=== PATIENT | male | born 1950 | race Caucasian/White ===

== ENCOUNTER → 2022-09-13 | Outpatient (CLI) | payer MEDICARE, BC ==
--- NOTE | 2022-09-16 11:03 | MR ---
EXAMINATION TYPE: MR Prostate wo/w con DATE OF EXAM: 09/13/2022 10:43 AM COMPARISON: None. CLINICAL INDICATION:Male, 71 years old with history of R97.20; PHH, TECHNIQUE: Multi-planar, multi-sequence imaging of the pelvis is performed prior to and following the uncomplicated administration of bolus intravenous gadolinium. CONTRAST: 12 Gadavist Interpretive Criteria: PI-RADS v2.1 SERUM PSA: 5.5 on 08/25/2022. 5.3 on 07/17/2022 SURGICAL PATHOLOGY: No data available. FINDINGS: Prostatic dimensions: 5.3 x 5.0 x 3.4 cm. "Bullet" Volume: 58.97 (PSA density=0.09 ng/mL/mL) CENTRAL GLAND (Central and Transition Zones/CZ+TZ): Low T2 signal involving the central gland involving the apex and mid gland anteriorly measuring 3.4 x 1.8 cm which does cross midline on diffusion weighted imaging and extends along the capsule at least 3.4 cm. No definitive evidence for extension beyond the capsule.(PI-RADS 5) Median lobe hypertrophy with protrusion into the base of the bladder. PERIPHERAL ZONE (PZ): Bilateral linear, indistinct wedgelike areas of low ADC, and low T2 signal, No evidence of masslike a bnormality, or localized perfusional hypervascularity, to further suggest a focus of clinically signi ficant prostate cancer. (PI-RADS 2) SEMINAL VESICLES (SV): Diffusely collapse or atrophic, bilaterally. PERIPROSTATIC TISSUES: Unremarkable. LYMPH NODES: No enlarged pelvic lymph node. REMAINING PELVIS: Bladder wall is within normal limits given distention. No abnormal free or organized intrapelvic fluid collection. No pathologic bowel dilation or mural thickening. Scattered colonic diverticula are present. OSSEOUS STRUCTURES: No suspicious osseous abnormality. IMPRESSION: 1. PI-RADS 5 lesion in the central gland which crosses midline anteriorly. Septa 3.4 cm. 2. No suspicious osseous lesion. No lymphadenopathy. No evidence of prostate adenocarcinoma involving the periprostatic tissues. 3. Moderate BPH, estimated gland volume 58.97 mL. 4. Colonic diverticulosis.
== END | disposition home or self-care (01) ==
LOC: RADMRIMAIN 09:40
PROVIDERS: ATTEND Urology
DX: K57.30 Diverticulosis of large intestine without perforation or abscess without bleeding (principal); N40.0 Benign prostatic hyperplasia without lower urinary tract symptoms; R97.20 Elevated prostate specific antigen [PSA]
CPT/HCPCS: 72197; A9585

== ENCOUNTER → 2022-12-11 | Outpatient (CLI) | payer MEDICARE, BC ==
--- NOTE | 2022-12-12 08:55 | PE ---
EXAMINATION TYPE: PET CT fusion skull to thigh DATE OF EXAM: 12/11/2022 CLINICAL INDICATION:Male, 72 years old with history of C61 PROSTATE CANCER; TECHNIQUE: Following the intravenous administration of 6.17 mCi of Ga-68 Illuccix (PSMA), whole bod y images are performed from the skull base to the midthigh. Images are reviewed on the computer in t he coronal, axial, and sagittal planes. Reconstructed rotating images are created on independent wor kstation and reviewed on the computer. A non-contrast CT is performed in conjunction with the PET s can. Glucose level 100 mg/dL CT DLP: 993 mGycm, Automated exposure control for dose reduction was used. COMPARISON: CT None, PET/CT None, MRI prostate 09/13/2022. FINDINGS: Mediastinal SUV mean is 1.8. Hepatic parenchyma SUV mean is 6.6. SKULL BASE AND NECK: No suspicious radiotracer activity. CHEST, MEDIASTINUM, AND HILAR REGION: No suspicious radiotracer activity. ABDOMEN AND PELVIS: * Dominant right prostate mid gland lesion max SUV 15.0 corresponding with MRI. * A small focus in the left mid gland max SUV 7.0 and 2 paramedian lesions more inferiorly near the apex max SUV 10.7 and 6.1 on the right and left respectively. No MRI correlate for these lesions. The se may be artifact. MUSCULOSKELETAL STRUCTURES: No suspicious radiotracer activity. No abnormal uptake identified. OTHER CT: Atherosclerosis of the arterial vasculature including mild coronary artery atherosclerosis. Scattered colonic diverticula. Fat-containing umbilical hernia. Multilevel degeneration changes thro ughout the spine. IMPRESSION: Findings compatible with primary prostate adenocarcinoma which corresponds with prior MRI. Few additi onal scattered foci in the prostate gland of metabolic uptake with no MRI correlate, unclear whether these are sites of additional malignancy versus artifact. No evidence for metastatic disease at this time.
== END | disposition home or self-care (01) ==
LOC: RADPETMAIN 15:35
PROVIDERS: ATTEND Radiology Radiation Oncology
DX: C61 Malignant neoplasm of prostate (principal)
CPT/HCPCS: 78815; A9596

== ENCOUNTER → 2022-12-24 | Outpatient (CLI) | payer MEDICARE, BC ==
[2022-12-24 16:21] LABS: Basophils # (A) 0.05 X 10*3/uL (0.00-0.10); Basophils % (A) 0.8 %; Eosinophils # (A) 0.13 X 10*3/uL (0.04-0.35); Eosinophils % (A) 2.2 %; HCT 44.3 % (39.6-50.0); HGB 14.9 g/dL (13.0-17.0); Lymphocytes # (A) 1.27 X 10*3/uL (0.90-5.00); MCHC 33.6 g/dL (32.0-37.0); MCV 92.1 FL (80.0-97.0); Mean Platelet Volume 10.7 FL (9.5-12.2); Monocytes # (A) 0.45 X 10*3/uL (0.20-1.00); Monocytes % (A) 7.5 %; NRBC Per 100 WBC 0 X 10*3/uL (0.00-0.01); Neutrophils # (A) 4.12 X 10*3/uL (1.80-7.70); Neutrophils % (A) 68.2 %; Platelet Count 255 X 10*3/uL (140-440); RBC 4.81 X 10*6/uL (4.40-5.60); RDW 12.5 % (11.5-14.5); WBC 6.04 X 10*3/uL (4.50-10.00)
[2022-12-24 16:24] LABS: BUN/Creat Ratio 22.23 Ratio (12.00-20.00); Blood Urea Nitrogen 28.9 mg/dL (9.0-27.0); Calcium 9.8 mg/dL (8.7-10.3); Carbon Dioxide 25.5 mmol/L (21.6-31.8); Chloride 105 mmol/L (96-109); Glucose 107 mg/dL (70-110); Potassium 4.9 mmol/L (3.5-5.5); Sodium 142 mmol/L (135-145)
== END | disposition home or self-care (01) ==
LOC: LABWHC1 09:29
PROVIDERS: ATTEND Urology
DX: Z01.812 Encounter for preprocedural laboratory examination (principal); C61 Malignant neoplasm of prostate
CPT/HCPCS: 36415; 80048; 85025

== ENCOUNTER 2022-12-30 11:44 | Day surgery (SDC) | payer MEDICARE, BC ==
--- NOTE | 2022-12-25 12:38 | P.HPIHPCON ---
History of Present Illness H&P Date: 12/25/22 Chief Complaint: Prostate cancer This is a 72-year-old male with history of prostate cancer he agreed to proceed with external beam radiation therapy. Option of SpaceOR gel placement. Discussed with him the risk which includes but not limited to bleeding, infection, rectal perforation. Discussed the rationale of doing SpaceO aware of the potential of some developmental rectal toxicity even with SpaceOR . Consent for Procedure: I have explained the operation/procedure to the patient, including the risks, benefits, side effects, alternative therapies (including not receiving the proposed treatment or service), the likelihood of the patient achieving his/her goals, and potential recuperation problems for the procedure/sedation/analgesia, as well as any blood products, if indicated. I also explained to the patient the risks, benefits and side effects of the alternatives, as well as the risks related to not receiving the proposed procedure, care, treatment, or services. Surgical - Exam - General no distress, no pain - Eyes no normal ocular movement, no pale - ENT normal nares, normal mucosa - Respiratory normal expansion, normal respiratory effort - Abdomen Abdomen: soft, non tender - Psychiatric oriented to time, oriented to person, oriented to place Assessment and Plan Assessment: OR for SpaceOR gel placement
[2022-12-25 16:05] VITALS: BMI 38.7
[~2022-12-30 11:44] MED LIST: LACTATED RINGERS 1,000 ML IV SCH; fentaNYL (PF) 50 MCG/ML 2 ML AMP IV PRN
[2022-12-30] MEDS ORDERED: ONDANSETRON 4 MG/2 ML VIAL ONE (12:41)
[2022-12-30] MEDS ORDERED: LIDOCAINE 1% (10MG/ML) FOR IV START INTRADERMA ONE (12:43)
[2022-12-30 12:50] VITALS: RESP 16; TEMP 97.3
[2022-12-30 12:53] LABS: Glucose,Whole Blood 100 mg/dL (70-110)
[2022-12-30] MEDS ORDERED: PROPOFOL 10 MG/ML 20 ML VIAL IV ONE (12:57)
[2022-12-30] MEDS ORDERED: SODIUM CHLORIDE 0.9% 50 ML with ceFAZolin 2,000 MG IV ONE ×2 (12:57)
[2022-12-30] MEDS ORDERED: LIDOCAINE 2% INJ 20 MG/ML SQ ONE ×2 (13:03)
--- NOTE | 2022-12-30 13:58 | P.OP ---
Date of Procedure: 12/30/22 Preoperative Diagnosis: Prostate cancer Postoperative Diagnosis: Same Procedure(s) Performed: SpaceOR gel placement and transrectal ultrasound Implants: SpaceOR gel Anesthesia: MAC Surgeon: Juan Joe Estimated Blood Loss (ml): 1 Pathology: none sent Condition: stable Disposition: PACU Indications for Procedure: This is a 72-year-old male with history of prostate cancer he agreed to proceed with external beam radiation therapy. Option of SpaceOR gel placement. Discussed with him the risk which includes but not limited to bleeding, infection, rectal perforation. Discussed the rationale of doing SpaceO aware of the potential of some developmental rectal toxicity even with SpaceOR Description of Procedure: The patient was taken to the operating room and placed in the dorsolithotomy position, with his legs supported in Venu stirrups. The external genitalia was prepped and draped sterilely. The transrectal ultrasound probe was placed intrarectally. The prostate was imaged. The probe was then placed within the stabilizing stand. A spinal needle was advanced under ultrasonic guidance to the level of the urogenital diaphragm, and lidocaine was used to infiltrate the tissues as the needle was withdrawn. Next, the SpaceOAR needle was passed through the midline of the perineum, 1-2 cm anterior to the anal opening. The needle was slowly advanced under ultrasonic guidance until the needle tip was located within the fat plane between the prostate and rectum, at the level of the mid prostate gland. The needle was confirmed to be midline on the axial imaging. A small amount of normal saline was injected for hydrodissection. Next, the SpaceOAR components were mixed and loaded into the Y connector per protocol. The Y connector was then connected to the needle, and the components were injected slowly over a course of approximately 10 seconds. A total of 10 ml was injected. Significant distance was created between the prostate and rectum, as desired. It should be noted that at no point was there any concern of rectal perforation. The needle was withdrawn, as well as the transrectal ultrasound probe, and the procedure was terminated. The patient tolerated the procedure well and was taken to the recovery room in stable condition
[2022-12-30 14:45] VITALS: BP 117/74; PULSE 58
== END 2022-12-30 14:20 | disposition home or self-care (01) ==
LOC: OR 11:44
PROVIDERS: ATTEND Urology
DX: C61 Malignant neoplasm of prostate (principal); I10 Essential (primary) hypertension; E11.9 Type 2 diabetes mellitus without complications; E03.9 Hypothyroidism, unspecified; Z79.899 Other long term (current) drug therapy; Z85.46 Personal history of malignant neoplasm of prostate; Z88.5 Allergy status to narcotic agent
CPT/HCPCS: 55874; C1889; J2001; J0690 ×2; J2405; J2704

== ENCOUNTER → 2023-11-19 | Outpatient (CLI) | payer MEDICARE, BC ==
[2023-11-19 13:46] LABS: Creatinine,Urine Random 64.3 mg/dL
[2023-11-19 18:57] LABS: HCT 45.2 % (39.6-50.0); HGB 15.1 g/dL (13.0-17.0); MCH 31.7 pg (27.0-32.0); MCHC 33.4 g/dL (32.0-37.0); MCV 94.8 FL (80.0-97.0); Mean Platelet Volume 10.3 FL (9.5-12.2); NRBC Per 100 WBC 0 X 10*3/uL (0.00-0.01); Platelet Count 255 X 10*3/uL (140-440); RBC 4.77 X 10*6/uL (4.40-5.60); RDW 12.2 % (11.5-14.5); WBC 7.24 X 10*3/uL (4.50-10.00)
[2023-11-19 19:33] LABS: ALT 24 U/L (10-49); AST 20 U/L (14-35); Albumin 4.4 g/dL (3.8-4.9); Albumin/Globulin Ratio 1.52 Ratio (1.60-3.17); Alkaline Phosphatase 74 U/L (41-126); BUN/Creat Ratio 23.58 Ratio (12.00-20.00); Blood Urea Nitrogen 28.3 mg/dL (9.0-27.0); Calcium 9.5 mg/dL (8.7-10.3); Carbon Dioxide 27.2 mmol/L (21.6-31.8); Chloride 104 mmol/L (96-109); Globulin 2.9 g/dL (1.6-3.3); Glucose 106 mg/dL (70-110); Magnesium 1.6 mg/dL (1.5-2.4); Phosphorus 3.1 mg/dL (2.4-5.1); Potassium 4.4 mmol/L (3.5-5.5); Sodium 141 mmol/L (135-145); Total Bilirubin 0.5 mg/dL (0.3-1.2); Total Protein 7.3 g/dL (6.2-8.2)
[2023-11-19 20:47] LABS: Microalbumin Creatinine Ratio <18 mg/g Cr (0-30)
[2023-11-19 21:46] LABS: Appearance,Urine Clear (Clear); Bilirubin,Urine Negative (Negative); Blood,Urine Negative (Negative); Color,Urine Yellow (Yellow); Ketones,Urine Negative (Negative); Nitrite,Urine Negative (Negative); Specific Gravity,Urine 1.023 (1.001-1.030); Urobilinogen,Urine 0.2 E.U./DL
== END | disposition home or self-care (01) ==
LOC: LABWHC1 12:20
PROVIDERS: ATTEND Nurse Practitioner Acute Care
CPT/HCPCS: 36415; 80053; 81003; 82043; 82570; 83735; 84100; 84156; 85027

== ENCOUNTER → 2024-01-18 | Outpatient (CLI) | payer MEDICARE, BC ==
[2024-01-18 15:00] LABS: Prostate Specific Antigen 0.07 ng/mL (0.000-6.500)
== END | disposition home or self-care (01) ==
LOC: LABWHC1 11:16
PROVIDERS: ATTEND Radiology Radiation Oncology
DX: C61 Malignant neoplasm of prostate (principal); Z85.46 Personal history of malignant neoplasm of prostate; Z80.42 Family history of malignant neoplasm of prostate
CPT/HCPCS: 36415; 84153; 84403